=== PATIENT | male | born 1990 | race African-American/Black ===

== ENCOUNTER 2020-08-02 04:22 | Emergency (ER) | payer BC, MEDICAID ==
[~2020-08-02] VITALS: Ht 182.9 cm; Wt 83.6 kg
[2020-08-02 08:51] VITALS: BP 135/81
== END 2020-08-02 09:11 | disposition home or self-care (01) ==
LOC: EMS 04:23
DX: F32.9 Major depressive disorder, single episode, unspecified (principal); F17.210 Nicotine dependence, cigarettes, uncomplicated; F12.90 Cannabis use, unspecified, uncomplicated; F15.90 Other stimulant use, unspecified, uncomplicated
CPT/HCPCS: Z7502

== ENCOUNTER 2025-03-28 21:35 | Emergency (ER) | payer MEDICAID, OTHER ==
[~2025-03-28] VITALS: Ht 182.9 cm; Wt 127.3 kg
[2025-03-28 22:03] VITALS: TEMP 97.8
[2025-03-28] MEDS: IBUPROFEN 800 MG TABLET PO ONE (22:32)
[2025-03-29] VITALS: BP 125/80; PULSE 64; RESP 17; O2SAT 98
== END 2025-03-29 00:59 | disposition home or self-care (01) ==
LOC: EMS 21:35
DX: S00.83XA Contusion of other part of head, initial encounter (principal); F12.90 Cannabis use, unspecified, uncomplicated; F17.210 Nicotine dependence, cigarettes, uncomplicated; F15.90 Other stimulant use, unspecified, uncomplicated; Z88.8 Allergy status to other drugs, medicaments and biological substances; Y04.0XXA Assault by unarmed brawl or fight, initial encounter; Y93.89 Activity, other specified; Y92.89 Other specified places as the place of occurrence of the external cause; Y99.8 Other external cause status
CPT/HCPCS: 70450; 70486; 72125; 99284